=== PATIENT | female | born 1950 | race Caucasian/White ===

== ENCOUNTER → 2020-01-28 14:01 | Outpatient (CLI) | payer MEDICARE, SELFPAY ==
--- NOTE | ~2020-01-28 | CT_ITS ---
EXAMINATION: CT abdomen pelvis wo/w con DATE: 01/28/2020 14:43 INDICATION: Microscopic hematuria TECHNIQUE: Computed tomography (CT) of the abdomen was performed without and subsequently with 130 cc Omnipaque 350 intravenous contrast. Automated exposure control and iterative reconstruction techniqu e were employed. Exam dose: 1224.89 mGy-cm total exam DLP. COMPARISON: 11/13/2019 CT abdomen pelvis FINDINGS: There are mild emphysematous changes in the lungs. Stable focal groundglass density in the left lower lobe and stable small left lower lobe pleural-based nodule since 11/13/2019. Normal size. No pericardial or pleural effusion. Status post cholecystectomy. Very small sliding hiatal hernia. Diffuse hepatic steatosis. No hepatic space-occupying mass lesion. No bile duct or pancreatic duct di latation. No pancreatic mass lesion or calcification. Normal splenic size. Normal morphology of the adrenal glands. There is prominence of the right renal pelvis and moderate right hydronephrosis, apparently secondary to right ureteropelvic disproportion. No left-sided hydronephrosis or dilatation of either ureter. P robable very small right renal cysts. 6 mm cortical left renal cyst. There is extensive calcification of the abdominal aorta and iliac arteries but no evidence of abdomin al aortic aneurysm. Bilateral femoral artery calcifications are noted as well. No intraperitoneal or retroperitoneal or pelvic mass lesion or adenopathy or ascites is evident. There is however considera ble streak artifact in the pelvic area from bilateral hip replacements, limiting evaluation. Normal appendix. There is a prominent amount of fecal material in the colon but no bowel obstruction, bowel wall thickening, pneumatosis or intraperitoneal free air. There is severe degenerative disc disease and mild retrolisthesis at L2-3. IMPRESSION: Moderate right hydronephrosis and pelviectasis, probably secondary to right ureteropelvi c disproportion Very small right renal cyst and 6 mm left renal cyst Very small sliding hiatal hernia Status post cholecystectomy Diffuse hepatic steatosis Reviewed, dictated and finalized at [facility]. Reviewed, dictated and finalized at [facility]. IMPRESSION: Moderate right hydronephrosis and pelviectasis, probably secondary to right ureteropelvic disproportion Very small right renal cyst and 6 mm left renal cyst Very small sliding hiatal hernia Status post cholecystectomy Diffuse hepatic steatosis
[2020-01-28 14:20] LABS: Estimated Glomerular Filt Rate 49
== END ==
PROVIDERS: PCP Family Medicine; Visit Provider Internal Medicine Nephrology
DX: R31.9 Hematuria, unspecified (principal); K44.9 Diaphragmatic hernia without obstruction or gangrene; Z90.49 Acquired absence of other specified parts of digestive tract; N28.1 Cyst of kidney, acquired; K76.0 Fatty (change of) liver, not elsewhere classified
CPT/HCPCS: 36415; 74178; Q9967